=== PATIENT | male | born 1950 | race African-American/Black ===

== ENCOUNTER 2017-03-02 09:05 | Day surgery (SDC) | payer BC ==
[2017-03-02] MEDS ORDERED: NS 500 ML IV 500 ML IV ONE (09:41)
[2017-03-02] MEDS ORDERED: TETRACAINE 0.5% OPHTH 1 DOSE AFFEYE ONE ×8 (10:00→12:35)
[2017-03-02] MEDS ORDERED: VIGAMOX 0.5% OPHTH 1 DOSE AFFEYE ONE ×5 (10:05→12:46)
[2017-03-02] MEDS ORDERED: PROLENSA OPHTH 1 DOSE AFFEYE ONE (10:16)
[2017-03-02] MEDS ORDERED: ALPHAGAN-P OPHTH 1 DOSE AFFEYE ONE (10:17)
[2017-03-02] MEDS ORDERED: MYDRIACIL OPHTH 1 DOSE AFFEYE ONE ×3 (10:18→10:20)
[2017-03-02] MEDS ORDERED: CYCLOGYL 1% OPHTH 1 DOSE OP ONE ×3 (10:18→10:20)
[2017-03-02] MEDS ORDERED: AK-DILATE 2.5% OPHTH 1 DOSE OP ONE ×3 (10:18→10:20)
[2017-03-02] MEDS: VERSED ONE ×5 (11:45→12:01)
[2017-03-02] MEDS ORDERED: AK-DILATE 10% OPHTH 1 DOSE AFFEYE ONE (11:47)
[2017-03-02] MEDS ORDERED: BETADINE OPHTH SOLN 5% EACHEYE ONE ×2 (12:18→12:30)
[2017-03-02] MEDS ORDERED: XYLOCAINE-MPF 1% IJ ONE ×2 (12:18→12:35)
[2017-03-02] MEDS ORDERED: ADRENALINE CHL INJ IJ ONE ×2 (12:18→12:35)
[2017-03-02] MEDS ORDERED: BSS OPHTH (PLAIN) 500 ML with VANCOMYCIN HCL 500 MG VIAL 25 MG, ADRENALINE CHL INJ 1 MG IR ONE ×6 (12:19)
[2017-03-02] MEDS ORDERED: DUOVISC IO ONE ×2 (12:19→12:35)
[2017-03-02 13:08] VITALS: BP 155/88
[2017-03-02] MEDS ORDERED: DIPRIVAN VIAL ONE (15:50)
== END 2017-03-02 13:10 | disposition home or self-care (01) ==
LOC: SURG1 09:05
PROVIDERS: ATTEND Ophthalmology
PROC: 08RJ3JZ Replacement of Right Lens with Synthetic Substitute, Percutaneous Approach (ICD-10-PCS; principal; 2017-03-02 13:45)
PROC: 08DJ3ZZ Extraction of Right Lens, Percutaneous Approach (ICD-10-PCS; principal; 2017-03-02 13:45)
DX: H25.11 Age-related nuclear cataract, right eye (principal); H25.011 Cortical age-related cataract, right eye; H52.221 Regular astigmatism, right eye
CPT/HCPCS: A4217; J0170; J2250; J3370; J3490

== ENCOUNTER 2022-12-10 15:24 | Observation (INO) ==
[2022-12-10] MEDS ORDERED: NS 500 ML IV 500 ML IV ONE ×4 (15:40→17:08)
[2022-12-10 15:41] VITALS: BMI 22.2
--- NOTE | 2022-12-10 15:44 | DR.GENAD ---
HPI Time Seen Time Seen by Provider: 12/10/22 15:40 PCP Primary Care Physician: Faizan Complaint/Symptoms Chief Complaint Doctors Comments: 72 y/o male presents with general weakness. Started today. Has been working in the heat this week, trying to drink fluids. Denies pain, except for some hand cramping. Denies fever, chills, URI symptoms, nausea, vomiting, diarrhea, urinary difficulty. Took his BP med today. Chief Complaint:: Patient states he got to hot at work on Wednesday and he has felt a little dizzy since, at work and BP was 60/40. Patient denies further symptoms or signs. Ambulatory to cardiac room. COVID-19 Coronavirus risk:travel/contact w/high risk person: No Has patient experienced Coronavirus symptoms: No Nurses notes reviewed Nurses Notes Review: Yes Source History Provided: Patient and Family Member Mode of Arrival Mode of Arrival: Ambulatory Timing Onset of Chief Complaint: 12/07/22 PMH PMH Past Medical History: Yes Past Medical History: Hypertension Past Medical History Comment: BPH Past Surgical History: Yes Surgical History: Ortho Surgery Family History History of Family Medical Conditions: No Family Medical History: Hypertension Social History Does patient currently use any type of tobacco product: No Have you used tobacco products in the last 12 months: No Type of Tobacco Use: None Does any household member use tobacco: No Alcohol Use: None Do you use any recreational Drugs:: No Lives With: Spouse Lives Where: Home Travel Risk Coronavirus risk:travel/contact w/high risk person: No Has patient experienced Coronavirus symptoms: No Infectious screening In the last 2 months have you had wt loss of >10#?: NO Have you had fever, night sweats or hemotysis?: No Have you traveled outside the country in the last 6 months?: No Isolation: Standard ROS Review of Systems Constitutional: Malaise and Weakness Eyes: No Symptoms Reported ENTM: No Symptoms Reported Respiratoy: No Symptoms Reported Cardiovascular: No Symptoms Reported Gastrointestinal/Abdominal: No Symptoms Reported Genitourinary: No Symptoms Reported Neurological: Weakness Musculoskeletal: No Symptoms Reported Integumentary: No Symptoms Reported All Other Systems: Reviewed and Negative PE Vital Signs Vitals: Vital Signs Temperature 98.1 F Pulse Rate 53 Pulse Rate 48 Pulse Rate 51 Pulse Rate 48 Pulse Rate 50 Pulse Rate 51 Pulse Rate 52 Pulse Rate 53 Pulse Rate 54 Pulse Rate 54 Pulse Rate 52 Pulse Rate 54 Pulse Rate 57 Pulse Rate 58 Pulse Rate 61 Pulse Rate 59 Pulse Rate 69 Pulse Rate 60 Pulse Rate 63 Pulse Rate 75 Respiratory Rate 27 Respiratory Rate 21 Respiratory Rate 38 Respiratory Rate 19 Respiratory Rate 19 Respiratory Rate 25 Respiratory Rate 30 Respiratory Rate 38 Respiratory Rate 28 Respiratory Rate 37 Respiratory Rate 22 Respiratory Rate 35 Respiratory Rate 39 Respiratory Rate 29 Respiratory Rate 28 Respiratory Rate 43 Respiratory Rate 39 Respiratory Rate 36 Respiratory Rate 27 Respiratory Rate 16 Blood Pressure 102/59 Blood Pressure 102/59 Blood Pressure 102/59 Blood Pressure 104/58 Blood Pressure 94/51 Blood Pressure 94/52 Blood Pressure 90/55 Blood Pressure 79/50 Blood Pressure 83/53 Blood Pressure 87/51 Blood Pressure 85/46 Blood Pressure 85/46 Blood Pressure 87/52 Blood Pressure 77/48 Blood Pressure 71/45 Blood Pressure 76/46 Blood Pressure 74/42 O2 Sat by Pulse Oximetry 100 O2 Sat by Pulse Oximetry 100 O2 Sat by Pulse Oximetry 100 O2 Sat by Pulse Oximetry 100 O2 Sat by Pulse Oximetry 99 O2 Sat by Pulse Oximetry 100 O2 Sat by Pulse Oximetry 99 O2 Sat by Pulse Oximetry 100 O2 Sat by Pulse Oximetry 98 O2 Sat by Pulse Oximetry 100 O2 Sat by Pulse Oximetry 100 O2 Sat by Pulse Oximetry 99 O2 Sat by Pulse Oximetry 100 O2 Sat by Pulse Oximetry 98 O2 Sat by Pulse Oximetry 97 O2 Sat by Pulse Oximetry 97 O2 Sat by Pulse Oximetry 97 O2 Sat by Pulse Oximetry 97 O2 Sat by Pulse Oximetry 98 O2 Sat by Pulse Oximetry 97 General General Appearance: Alert and In No Apparent Distress Eyes Eye exam: PERRL and EOMI ENT ENT Exam: Normal Oropharynx and Mucous Membranes Moist Neck Neck Exam: Normal Inspection and Full ROM Respiratory Respiratory Exam: Normal Lung Sounds Bilat; negative Accessory Muscle Use or Respiratory Distress Cardiovascular Cardiovascular Exam: Regular Rate, Normal Rhythm and Normal Heart Sounds Abdominal Exam Abdominal Exam: Normal Bowel Sounds and Soft; negative Tenderness or Guarding Extremities Extremities Exam: Normal Inspection and Full ROM; negative Edema Neurologic Neurological Exam: Alert, Oriented X3 and CN II-XII Intact; negative Motor Sensory Deficit Skin Skin Exam: Warm and Dry COURSE Treatment Treatment: 72 y/o male with low BP today. No recent illness. Clinically with probable heat exhaustion, while still taking his BP med. W/u initiated. Given IV fluids. Labs c/w ZAK - Cr 3.07, EGFR 26. CK 579, c/w degree of heat exhausti on. Recommend admission for further hydration. Discussed with his MD, Dr Gloria, accepts the admission. ROR Labs Reviewed Laboratory Results Reviewed?: Yes 12/10/22 15:40 12/10/22 15:40 Laboratory: WBC 5.1 X10^3/uL (3.6-10.0) 12/10/22 15:40 RBC 5.35 X10^6/uL (4.7-6.0) 12/10/22 15:40 Hgb 13.8 g/dL (13.5-18.0) 12/10/22 15:40 Hct 42.0 % (42.0-54.0) 12/10/22 15:40 MCV 78.5 fL (80.0-100.0) L 12/10/22 15:40 MCH 25.9 pg (27.0-34.0) L 12/10/22 15:40 MCHC 33.0 g/dL (33.0-35.0) 12/10/22 15:40 RDW 16.2 % (11.6-16.5) 12/10/22 15:40 Plt Count 319 X10^3/uL (150.0-450.0) 12/10/22 15:40 MPV 8.1 fL (7.4-11.0) 12/10/22 15:40 Neut % (Auto) 64.0 % (42.0-75.0) 12/10/22 15:40 Lymph % (Auto) 28.5 % (21.0-51.0) 12/10/22 15:40 [place] % (Auto) 4.9 % (0.0-13.0) 12/10/22 15:40 Eos % (Auto) 2.1 % (0.9-2.9) 12/10/22 15:40 Baso % (Auto) 0.5 % (0.2-1.0) 12/10/22 15:40 Neut # (Auto) 3.3 x10^3/uL (2.2-4.8) 12/10/22 15:40 Lymph # (Auto) 1.5 X10^3/uL (1.3-2.9) 12/10/22 15:40 [place] # (Auto) 0.3 x10^3/uL (0.3-0.8) 12/10/22 15:40 Eos # (Auto) 0.1 x10^3/uL (0.0-0.2) 12/10/22 15:40 Baso # (Auto) 0.0 X10^3/uL (0.0-0.1) 12/10/22 15:40 Absolute Nucleated RBC 0.1 /100WBC 12/10/22 15:40 Sodium 137 mmol/L (136-145) 12/10/22 15:40 Corrected Sodium 138 mmol/L (136-145) 12/10/22 15:40 Potassium 4.3 mmol/L (3.5-5.1) 12/10/22 15:40 Chloride 103 mmol/L (98-107) 12/10/22 15:40 Carbon Dioxide 25.8 mmol/L (21-32) 12/10/22 15:40 BUN 41 mg/dL (7-18) H 12/10/22 15:40 Creatinine 3.07 mg/dL (0.70-1.30) H 12/10/22 15:40 Est GFR (MDRD) Af Amer 26 (>60) L 12/10/22 15:40 Est GFR (MDRD) Non-Af 21 (>60) L 12/10/22 15:40 Glucose 162 mg/dL (65-99) H 12/10/22 15:40 Calcium 9.0 mg/dL (8.5-10.1) 12/10/22 15:40 Corrected Calcium TNP 12/10/22 15:40 Total Bilirubin 0.50 mg/dL (0.2-1.0) 12/10/22 15:40 AST 33 Units/L (15-37) 12/10/22 15:40 ALT 25 Units/L (12-78) 12/10/22 15:40 Alkaline Phosphatase 89 Units/L (46-116) 12/10/22 15:40 Creatine Kinase 579 Units/L (39-308) H 12/10/22 15:40 Troponin I High Sens 5.7 ng/L (4.0-60.0) 12/10/22 15:40 Total Protein 7.5 g/dL (6.4-8.2) 12/10/22 15:40 Albumin 3.9 g/dL (3.4-5.0) 12/10/22 15:40 Globulin 3.6 g/dL (2.5-4.5) 12/10/22 15:40 Albumin/Globulin Ratio 1.1 Ratio (1.1-2.1) 12/10/22 15:40 Lipase 72 Units/L (73-393) L 12/10/22 15:40 XRAY XRAY Interpreted by: Self X-ray Results: No acute bnormalities EKG Rate: 60 [place]: Normal Rhythm: NSR Block: None ST: Nonsp Opioid Opioid Risk Tool Age (Otto box if 16-45): No History of Preadolescent Sexual Abuse: No Total: 0 Total Score Risk Category: Low Risk Copyright: Angel WETZEL predicting aberrant behaviors Discharge Plan Diagnosis Discharge Problem: Acute nontraumatic kidney injury Discharge Plan Patient Disposition: 09 ADMITTED INPATIENT Condition: Stable Orders to Discharge Patient Discharge Orders: Transfer (Routine); Ordered 12/10/22 Ordered By: Vin Saldivar
--- NOTE | 2022-12-10 15:48 | EKG ---
Test Reason : low BP Blood Pressure : */* mmHG Vent. Rate : 60 BPM Atrial Rate : 60 BPM P-R Int : 176 ms QRS Dur : 100 ms QT Int : 446 ms P-R-T Axes : 67 61 52 degrees QTc Int : 446 ms Normal sinus rhythm Nonspecific ST abnormality Abnormal ECG No previous ECGs available Confirmed by Bonifacio Carrera ([id number]) on 12/11/2022 12:50:24 PM Referred By: Confirmed By: Bonifacio Carrera
[2022-12-10 15:58] LABS: BASOPHILS % (AUTO) 0.5 % (0.2-1.0); EOSINOPHILS # (AUTO) 0.1 x10^3/uL (0.0-0.2); EOSINOPHILS % (AUTO) 2.1 % (0.9-2.9); HEMOGLOBIN 13.8 g/dL (13.5-18.0); LYMPHOCYTES # (AUTO) 1.5 X10^3/uL (1.3-2.9); LYMPHOCYTES % (AUTO) 28.5 % (21.0-51.0); MEAN CORPUSCULAR HEMOGLOBIN 25.9 pg (27.0-34.0); MEAN CORPUSCULAR VOLUME 78.5 fL (80.0-100.0); MEAN PLATELET VOLUME 8.1 fL (7.4-11.0); MONOCYTES # (AUTO) 0.3 x10^3/uL (0.3-0.8); MONOCYTES % (AUTO) 4.9 % (0.0-13.0); NEUTROPHILS # (AUTO) 3.3 x10^3/uL (2.2-4.8); PLATELET COUNT 319 X10^3/uL (150.0-450.0); RED BLOOD COUNT 5.35 X10^6/uL (4.7-6.0); RED CELL DISTRIBUTION WIDTH 16.2 % (11.6-16.5); WHITE BLOOD COUNT 5.1 X10^3/uL (3.6-10.0)
[2022-12-10 16:08] LABS: ALANINE AMINOTRANSFERASE 25 Units/L (12-78); ALBUMIN 3.9 g/dL (3.4-5.0); ALKALINE PHOSPHATASE 89 Units/L (46-116); ASPARTATE AMINO TRANSFERASE 33 Units/L (15-37); BLOOD UREA NITROGEN 41 mg/dL (7-18); CARBON DIOXIDE 25.8 mmol/L (21-32); CHLORIDE 103 mmol/L (98-107); COR NA(FOR HYPERGLY) 138 mmol/L (136-145); CREATINE KINASE 579 Units/L (39-308); CREATININE 3.07 mg/dL (0.70-1.30); GLUCOSE 162 mg/dL (65-99); LIPASE 72 Units/L (73-393); POTASSIUM 4.3 mmol/L (3.5-5.1); SODIUM 137 mmol/L (136-145); TOTAL PROTEIN 7.5 g/dL (6.4-8.2); eGFR NON BLACK RACES 21 (>60)
[2022-12-10] MEDS ORDERED: CONSULT PHARMACY - POTASSIUM & MAGNESIUM XX SCH (18:24)
--- NOTE | 2022-12-10 18:54 | RAD ---
HISTORYLOW BPSTUDYCHEST, 1 VIEWCOMPARISONNo priorsTECHNIQUEFINDINGSHeart size and mediastinal contours are normal. Lungs are clear as are the pleural spaces. No free air or pneumothorax. No acute bony abonormality. 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
[2022-12-10] MEDS: D5 NS 1,000 ML IV 1,000 ML IV SCH (19:08)
[2022-12-11] MEDS: D5 NS 1,000 ML IV 1,000 ML IV SCH ×2 (04:13→14:43)
[2022-12-11 05:42] LABS: BASOPHILS % (AUTO) 0.4 % (0.2-1.0); EOSINOPHILS # (AUTO) 0.2 x10^3/uL (0.0-0.2); EOSINOPHILS % (AUTO) 2.7 % (0.9-2.9); HEMATOCRIT 36.5 % (42.0-54.0); LYMPHOCYTES # (AUTO) 2.1 X10^3/uL (1.3-2.9); LYMPHOCYTES % (AUTO) 31.8 % (21.0-51.0); MEAN CORPUSCULAR HEMOGLOBIN 25.7 pg (27.0-34.0); MEAN CORPUSCULAR VOLUME 77.8 fL (80.0-100.0); MONOCYTES # (AUTO) 0.5 x10^3/uL (0.3-0.8); MONOCYTES % (AUTO) 7.4 % (0.0-13.0); NEUTROPHILS # (AUTO) 3.8 x10^3/uL (2.2-4.8); NEUTROPHILS % (AUTO) 57.7 % (42.0-75.0); PLATELET COUNT 274 X10^3/uL (150.0-450.0); RED BLOOD COUNT 4.69 X10^6/uL (4.7-6.0); RED CELL DISTRIBUTION WIDTH 15.8 % (11.6-16.5); WHITE BLOOD COUNT 6.5 X10^3/uL (3.6-10.0)
[2022-12-11 05:57] LABS: ALBUMIN 3.1 g/dL (3.4-5.0); CALCIUM 8.2 mg/dL (8.5-10.1); CARBON DIOXIDE 25.4 mmol/L (21-32); COR CA(FOR HYPOALB) 8.9 mg/dL (8.5-10.1); CREATININE 1.75 mg/dL (0.70-1.30)
[2022-12-11 06:09] LABS: BILIRUBIN,URINE NEGATIVE (NEGATIVE); BLOOD/HEMOGLOBIN,URINE 2+ (NEGATIVE); GLUCOSE, URINE NEGATIVE (NEGATIVE); KETONES,URINE NEGATIVE (NEGATIVE); LEUKOCYTE ESTERASE ,URINE NEGATIVE (NEGATIVE); NITRITES,URINE NEGATIVE (NEGATIVE); PROTEIN,URINE NEGATIVE (NEGATIVE); UROBILINOGEN,URINE NORMAL (NORMAL)
[2022-12-11 06:18] LABS: APPEARANCE,URINE CLEAR (CLEAR); BACTERIA,URINE NEGATIVE /HPF (NEGATIVE); COLOR,URINE YELLOW (YELLOW); RBC,URINE 0-2 /HPF (0-3); SQUAMOUS EPITHELIAL CELL,UR RARE /HPF (NEGATIVE)
[2022-12-11] MEDS: PROSCAR PO SCH (08:14)
--- NOTE | 2022-12-11 14:11 | DR.H&P ---
H&P - History & Physical for Day of: H&P Date: 12/10/22 - Chief Complaint Chief Complaint: WEAKNESS, DIZZINESS, LOW BLOOD PRESSURE - History of Present Illness History of Present Illness: IS A 72 YEAR OLD PATIENT OF OURS. HE PRESENTED TO THE ER WITH COMPLAINTS OF GENERALIZED WEAKNESS, DIZZINESS, AND LOW BLOOD PRESSURE. PATIENT REPORTS THAT HE HAS BEEN WORKING OUT IN THE HEAT THIS WEEK. HE REPORTS THAT HE HAS TRIED TO DRINK PLENTY OF FLUIDS AND TAKE BREAKS WHEN HE COULD. HE DENIES PAIN, EXCEPT FOR SOME HAND CRAMPING. HE DENIES FEVER, CHILLS, URI SYMPTOMS, NAUSEA, VOMITING, DIARRHEA, OR URINARY DIFFICULTY. HE HAS A PMH OF HTN AND BPH. ON ARRIVAL TO THE HOSPITAL, HIS VITALS WERE: 98.1-75-16-97%-74/42. LABS WERE OBTAINED. WBC 5.1, RBC 5.35, HGB 13.8, HCT 42.0, PLT COUNT 319, SODIUM 137, POTASSIUM 4.3, CHLORIDE 103, CARBON DIOXIDE 25.8, BUN 41, CREATININE 3.07, GLUCOSE 162, CALCIUM 9.0, TOTAL BILI 0.50, AST 33, ALT 25, ALK PHOS 89, CREATINE KINASE 579, TROPONIN 5.7, TOTAL PROTEIN 7.5, ALBUMIN 3.9, LIPASE 72. A URINALYSIS WAS OBTAINED AND REVEALED: WBC 3-5, RBC 0-2, LEUKOCYTES NEGATIVE, BACTERIA NEGATIVE. A CHEST XRAY WAS OBTAINED AND REVEALED: Heart size and mediastinal contours are normal. Lungs are clear as are the pleural spaces. No free air or pneumothorax. No acute bony abonormality. 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 EKG WAS OBTAINED AND REVEALED: NORMAL SINUS RHYTHM WITH HR 60 BPM. IN THE ER, HE WAS GIVEN (TWO) ONE LITER NORMAL SALINE BOLUSES. HE WAS ADMITTED TO THE HOSPITAL FOR FURTHER TREATMENT AND EVALUATION OF ACUTE NON TRAUMATIC KIDNEY INJURY AND HYPOTENSION. HE WAS STARTED ON D5NS AT 100 ML/HR AND PROSCAR 5MG DAILY. WE WILL HOLD HIS LISINOPRIL AND TAMSULOSIN FOR NOW. OTHERWISE, WE WILL FOLLOW-UP WITH AM LABS AND CONTINUE TO MONITOR. TIME SPENT ON CLINICAL ASSESSMENT, REVIEWING LABS AND IMAGING, DECISION MAKING, AND DOCUMENTATION GREATER THAN 75 MINUTES. - Past Medical History Past Medical History: Hypertension Additional Medical History: BPH - Past Surgical History Surgical History: Ortho Surgery - Family History Family Medical History: Diabetes Mellitus, Cancer, Hypertension - Social History Does patient currently use any type of tobacco product: No Have you used tobacco products in the last 12 months: No Type of Tobacco Use: None Does any household member use tobacco: No Alcohol Use: None Drug Use: None - Review of Systems Constitutional: Weakness Eyes: No Symptoms Reported ENT: No Symptoms Reported Respiratory: No Symptoms Reported Cardiovascular: Light Headedness Gastrointestinal: No Symptoms Reported Genitourinary: No Symptoms Reported Musculoskeletal: No Symptoms Reported Skin: No Symptoms Reported Neurological: Weakness - Physical Exam Vital Signs: Vital Signs Temperature 97.8 F Temperature 97.8 F Pulse Rate [Bilateral Radial] 54 Pulse Rate [Bilateral Radial] 67 Respiratory Rate 20 Respiratory Rate 20 Blood Pressure [Left Arm] 111/57 Blood Pressure [Left Arm] 96/54 O2 Sat by Pulse Oximetry 97 O2 Sat by Pulse Oximetry 96 Oriented: Normal Eyes: Normal Ear: Normal Nose: Normal Throat: Normal Respiratory: Clear Throughout Cardiovascular: Normal : Normal Auscultation: Bowel Sounds: Normal Palpation: Normal Tenderness: Normal Skin: Decreased [place] Musculoskeletal: Normal Psychiatric: Normal Mood Description: Calm Affect: Normal Speech Pattern: Clear - Assessment/Plan (1) Acute nontraumatic kidney injury Status: Acute Plan: ADMIT, D5NS AT 100 ML/HR AND PROSCAR 5MG DAILY, CONTINUE TO MONITOR (2) Hypotension Qualifiers: Hypotension type: hypotension due to hypovolemia Qualified Code(s): I95.89 - Other hypotension; E86.1 - Hypovolemia Status: Acute Plan: HOLD BP MEDS, CONTINUE TO MONITOR (3) Generalized weakness Status: Acute (4) BPH (benign prostatic hyperplasia) Qualifiers: Lower urinary tract symptom presence: symptoms absent Qualified Code(s): N40.0 - Benign prostatic hyperplasia without lower urinary tract symptoms Status: Acute - Allergies Allergies/Adverse Reactions: Allergies Allergy/AdvReac Type Severity Reaction Status Date / Time No Known Drug Allergies Allergy Verified 12/10/22 19:55 - Medications Home Medications: Home Medications Medication Instructions Recorded Confirmed finasteride 5 mg tablet 5 mg PO QDAY 12/10/22 12/10/22 lisinopril 10 mg tablet 10 mg PO QDAY 12/10/22 12/10/22 tamsulosin 0.4 mg capsule 0.4 mg PO QDAY 12/10/22 12/10/22
[2022-12-12] MEDS: D5 NS 1,000 ML IV 1,000 ML IV SCH (00:22)
[2022-12-12 04:56] VITALS: O2SAT 98
[2022-12-12 05:52] LABS: BASOPHILS % (AUTO) 0.8 % (0.2-1.0); EOSINOPHILS # (AUTO) 0.2 x10^3/uL (0.0-0.2); EOSINOPHILS % (AUTO) 3.9 % (0.9-2.9); HEMATOCRIT 34.9 % (42.0-54.0); HEMOGLOBIN 11.7 g/dL (13.5-18.0); LYMPHOCYTES # (AUTO) 1.9 X10^3/uL (1.3-2.9); LYMPHOCYTES % (AUTO) 37.6 % (21.0-51.0); MEAN CORPUSCULAR HEMOGLOBIN 26.1 pg (27.0-34.0); MEAN CORPUSCULAR HGB CONC 33.6 g/dL (33.0-35.0); MEAN CORPUSCULAR VOLUME 77.7 fL (80.0-100.0); MEAN PLATELET VOLUME 8.1 fL (7.4-11.0); MONOCYTES # (AUTO) 0.4 x10^3/uL (0.3-0.8); MONOCYTES % (AUTO) 7.4 % (0.0-13.0); NEUTROPHILS # (AUTO) 2.6 x10^3/uL (2.2-4.8); NEUTROPHILS % (AUTO) 50.3 % (42.0-75.0); PLATELET COUNT 271 X10^3/uL (150.0-450.0); RED BLOOD COUNT 4.49 X10^6/uL (4.7-6.0); RED CELL DISTRIBUTION WIDTH 15.9 % (11.6-16.5); WHITE BLOOD COUNT 5.1 X10^3/uL (3.6-10.0)
[2022-12-12 05:54] LABS: ALANINE AMINOTRANSFERASE 21 Units/L (12-78); ALBUMIN 2.8 g/dL (3.4-5.0); ALKALINE PHOSPHATASE 84 Units/L (46-116); ASPARTATE AMINO TRANSFERASE 19 Units/L (15-37); BLOOD UREA NITROGEN 20 mg/dL (7-18); CARBON DIOXIDE 26.1 mmol/L (21-32); CHLORIDE 109 mmol/L (98-107); CREATININE 1.14 mg/dL (0.70-1.30); GLUCOSE 100 mg/dL (65-99); POTASSIUM 4.1 mmol/L (3.5-5.1); SODIUM 143 mmol/L (136-145); TOTAL PROTEIN 5.7 g/dL (6.4-8.2); eGFR NON BLACK RACES > 60 (>60)
[2022-12-12] MEDS: PROSCAR PO SCH (08:34)
[2022-12-12 11:03] VITALS: BP 120/63; PULSE 54; RESP 18; TEMP 97.8
== END 2022-12-12 11:20 | disposition home or self-care (01) ==
LOC: ER 15:24 → MED/SURG 15:24
PROVIDERS: ADMIT Internal Medicine; ATTEND Internal Medicine